=== PATIENT | female | born 1970 | race Caucasian/White ===

== ENCOUNTER 2018-06-02 00:47 | Emergency (ER) | payer MEDICAID ==
[~2018-06-02] VITALS: Ht 167.6 cm; Wt 126.1 kg
[2018-06-02 00:54] VITALS: Ht 167.6 cm; Wt 126.1 kg
[2018-06-02 04:00] VITALS: BP 131/95
== END 2018-06-02 04:00 | disposition home or self-care (01) ==
LOC: ED 00:47
DX: S43.085A Other dislocation of left shoulder joint, initial encounter (principal); I10 Essential (primary) hypertension; Z88.2 Allergy status to sulfonamides; Z88.1 Allergy status to other antibiotic agents; Y93.41 Activity, dancing; X50.9XXA Other and unspecified overexertion or strenuous movements or postures, initial encounter; Y92.89 Other specified places as the place of occurrence of the external cause; Y99.8 Other external cause status
CPT/HCPCS: J2765; J3490